=== PATIENT | female | born 1965 | race Caucasian/White ===

== ENCOUNTER 2019-05-19 09:23 | Inpatient (IN) ==
[2019-05-19] MEDS ORDERED: NS 1,000 ML IV ONE ×3 (09:44→11:48)
--- NOTE | 2019-05-19 09:55 | PROVIDER DOCUMENTATION ---
HPI-Fever - General Chief Complaint: SEPSIS ALERT Stated Complaint: FEVER,VOMITING,SORE THROAT,CHILLS Time Seen by Provider: 05/19/19 09:43 Source: patient Allergies/Adverse Reactions: Patient Allergies Allergy/AdvReac Type Severity Reaction Status Date / Time cephalexin [From Keflex] Allergy Severe ANAPHYLAXIS Verified 05/19/19 10:19 codeine [Codeine] Allergy Severe SWELLING Verified 05/19/19 10:19 doxycycline Allergy Severe ANAPHYLAXIS Verified 05/19/19 10:19 levofloxacin [From Levaquin] Allergy Severe HIVES Verified 05/19/19 10:19 Penicillins Allergy Severe ANAPHYLAXIS Verified 05/19/19 10:19 sulfamethoxazole Allergy Severe ANAPHYLAXIS Verified 05/19/19 10:19 [From Bactrim] trimethoprim [From Bactrim] Allergy Severe ANAPHYLAXIS Verified 05/19/19 10:19 Home Medications: Home Medication List Medication Instructions Recorded Confirmed Last Taken Type Esomeprazole [Nexium] 40 mg PO HS 02/13/12 05/20/19 05/16/19 21:00 History Amitriptyline HCl 150 mg PO HS 05/10/19 05/20/19 05/16/19 21:00 History Bisoprolol/Hydrochlorothiazide 1 ea PO HS 05/10/19 05/20/19 05/16/19 21:00 History [Ziac 10-6.25 mg Tablet] Losartan Potassium [Cozaar] 100 mg PO HS 05/10/19 05/20/19 05/16/19 21:00 History Tolterodine Tartrate [Detrol] 1 mg PO HS 05/10/19 05/20/19 05/16/19 21:00 History Metformin [Glucophage] 2,000 mg PO HS 05/17/19 05/20/19 Unknown History Oxycodone I.r. [Oxy Ir] 5 mg PO Q6H PRN PRN #15 cap 05/17/19 05/20/19 Unknown Rx Amlodipine Besylate [Norvasc] 10 mg PO HS 05/20/19 05/20/19 Unknown History Escitalopram Oxalate [Lexapro] 10 mg PO HS 05/20/19 05/20/19 Unknown History Ropinirole [Requip] 2 mg PO DAILY 05/20/19 05/20/19 Unknown History Aztreonam [Azactam] 1 gm .SEE ORDER Q8H #33 vial 05/24/19 Unknown Rx - History of Present Illness-Fever Nature of Presenting Problem: Patient had lithotripsy and was doing fine until last night. She started running fever and had shortness of breath. She has a mild cough which is nonproductive. She is having some flank pain since the lithotripsy. No travel. Fever Severity/Quality: reports: greater than 100.5 F Onset/Duration: reports: last night Timing: reports: still present Severity: reports: moderate Context: reports: none Recent Illness?: reports: none Fever Therapy DRAIN CLEANER: Initiated none Cognitive Baseline: alert, oriented x3 Modifying Factors: improves with: nothing Associated Symptoms: reports: back/neck pain, cough, fever/chills, shortness of breath, other (dysurea) Similar Symptoms Previously?: No Recently seen or treated by another doctor?: Yes - Glascow Coma Score Best Eye Response ([place]): (4) open spontaneously Best Verbal Response (Mona): (5) oriented Best Motor Response ([place]): (6) obeys commands Mona Total: 15 Review of Systems - Adult - REVIEW OF SYSTEMS - ADULT Constitutional: reports: see HPI Eyes: reports: no symptoms reported Ears, Nose, Mouth & Throat: reports: throat pain Cardiovascular: reports: no symptoms reported Respiratory: reports: see HPI Gastrointestinal: reports: no symptoms reported Genitourinary: reports: dysuria Musculoskeletal: reports: see HPI Integumentary: reports: no symptoms reported Neurological: reports: no symptoms reported Psychiatric: reports: no symptoms reported Endocrine: reports: no symptoms reported Hematologic/Lymphatic: reports: no symptoms reported Allergic/Immunologic: reports: no symptoms reported Past History - Adult - PAST MEDICAL HISTORY-ADULT Review of Records: reports: Old Records Reviewed, Nursing Assessment Review Major Childhood Illnesses: reports: denies history Cardiovascular: reports: HTN Respiratory: reports: COPD, other Gastrointestinal: reports: denies history Obstetrical/Gynecological: reports: denies history Genitourinary: reports: kidney stones Musculoskeletal: reports: denies history Neurological: reports: denies history Psychiatric: reports: denies history Endocrine/Immune: reports: Diabetes Other Conditions: reports: denies history Additional History: sleep apnea - PRIOR SURGERIES/PROCEDURES Surgical/Procedure History: reports: cholecystectomy, hysterectomy, other - PRIOR HOSPITALIZATIONS Prior Hospitalizations: reports: none - IMMUNIZATION STATUS Childhood Immunizations: See Nurse Assessment Flu Vaccine: See Nurse Assessment - FAMILY HISTORY Family History: reviewed, not pertinent Physical Exam-General - PHYSICAL EXAM-ADULT Initial Vital Signs Reviewed: Yes - CONSTITUTIONAL General Appearance: mild distress, obese - EYES Eyes: PERRL/EOMI, pink conjunctivae, anisocoria - HEAD, EARS, NOSE, MOUTH & THROAT HENMT: normocephalic/atraumatic, moist mucous membranes, normal ENT inspection, TMs normal, pharynx normal - NECK Neck: non-tender, full range of motion, supple - RESPIRATORY Respiratory: lungs clear, other (tachipnic) - CARDIOVASCULAR Cardiovascular: normal peripheral pulses, no edema, no gallop, no JVD, no murmur - GASTROINTESTINAL (ABDOMEN) Abdominal Exam: normal bowel sounds, non tender, soft - LYMPHATIC Lymphatic: no adenopathy - MUSCULOSKELETAL Back Exam: normal inspection, CVA tenderness (mild tenderness) Extremity: normal range of motion, non-tender, normal gait - SKIN Integumentary: diaphoresis - NEUROLOGIC Neurologic: grossly normal - PSYCHIATRIC Psych/Mental Status: normal mood/affect, normal thought content Progress - PLAN OF CARE/RESULTS Progress/Plan/Lab Results: Orders Category Date Time Status Admit [facility] Routine AdmDCTranf 05/19/19 15:04 Active Activity - Up with Assistance ORDERED Care 05/19/19 15:04 Completed Apply Mechanical Device [QM] ORDERED Care 05/19/19 18:10 Completed Cardiac Monitoring NOW Care 05/19/19 09:35 Completed IV Insertion NOW Care 05/19/19 09:35 Completed Intake and Output-Strict ORDERED Care 05/19/19 18:10 Completed NEWS Score >or=5:Order NEWS Bundle S.O. NOW Care 05/19/19 09:33 Completed Notify Provider of NEWS Score NOW Care 05/19/19 09:35 Completed Nursing- MD Consult Request ROUTINE Care 05/19/19 15:04 Completed Update & Confirm Home Medicati ROUTINE Care 05/19/19 15:04 Completed Vital Signs Order Q 4-HR ASSESS Care 05/19/19 18:10 Completed Z-Document. for Tele Applied ORDERED Care 05/19/19 18:10 Completed Physician/Provider Consults Routine Cons 05/19/19 15:04 Ordered Social Service Consult Routine Cons 05/19/19 18:10 Active CHEST-1 VIEW [RAD] Stat Exams 05/19/19 09:[address] ABDOMEN/PELVIS W/O CONTRAST [CT] Stat Exams 05/19/19 12:41 Completed BLOOD CULTURE [BLDCUL] Stat Lab 05/19/19 11:10 Completed CBC WITH DIFF [HEME] Q24H Lab 05/20/19 06:50 Completed CBC WITH DIFF [HEME] Q24H Lab 05/21/19 07:19 Completed CBC WITH DIFF [HEME] Q24H Lab 05/22/19 06:29 Completed CBC WITH DIFF [HEME] Q24H Lab 05/23/19 06:50 Completed CBC WITH DIFF [HEME] Q24H Lab 05/24/19 07:30 Completed CBC WITH DIFF [HEME] Stat Lab 05/19/19 10:33 Completed CK PROFILE [SP CHEM] Stat Lab 05/19/19 10:33 Completed COMPREHENSIVE METABOLIC PANEL [CHEM] Q24H Lab 05/20/19 06:50 Completed COMPREHENSIVE METABOLIC PANEL [CHEM] Q24H Lab 05/21/19 07:19 Completed COMPREHENSIVE METABOLIC PANEL [CHEM] Q24H Lab 05/22/19 06:29 Completed COMPREHENSIVE METABOLIC PANEL [CHEM] Q24H Lab 05/23/19 06:50 Completed COMPREHENSIVE METABOLIC PANEL [CHEM] Q24H Lab 05/24/19 07:30 Completed COMPREHENSIVE METABOLIC PANEL [CHEM] Stat Lab 05/19/19 10:33 Completed D-DIMER [COAG] Stat Lab 05/19/19 10:33 Completed Flu Swab [INFLUENZA SCREEN A/B] Stat Lab 05/19/19 09:32 Completed GRAM STAIN [BLDCUL] Stat Lab 05/19/19 11:10 Completed GRAM STAIN [BLDCUL] Stat Lab 05/19/19 11:25 Completed LACTATE, PLASMA [CHEM] Lab 05/19/19 10:33 Completed LACTATE, PLASMA [CHEM] Lab 05/19/19 14:12 Completed LACTATE, PLASMA [CHEM] Lab 05/19/19 18:58 Completed MAGNESIUM [CHEM] Q24H Lab 05/20/19 06:50 Completed MAGNESIUM [CHEM] Q24H Lab 05/21/19 07:19 Completed MAGNESIUM [CHEM] Q24H Lab 05/22/19 06:29 Completed MAGNESIUM [CHEM] Q24H Lab 05/23/19 06:50 Completed MAGNESIUM [CHEM] Q24H Lab 05/24/19 07:30 Completed PROTIME WITH INR [COAG] Stat Lab 05/19/19 10:33 Completed PTT [COAG] Stat Lab 05/19/19 10:33 Completed TROPONIN T HIGH SENSITIVITY Stat Lab 05/19/19 10:33 Completed URINALYSIS W/POSS RFLX CULT [URINALYSIS] Stat Lab 05/19/19 12:54 Completed URINE CULTURE [RM] Routine Lab 05/19/19 12:54 Completed URINE MANUAL MICROSCOPIC [URINALYSIS] Stat Lab 05/19/19 12:54 Completed 0.9% Sodium Chloride Inj [Ns] 1,000 ml Med 05/19/19 15:04 Discontinued IV 100 mls/hr 0.9% Sodium Chloride Inj [Ns] 1,000 ml Med 05/19/19 09:44 Discontinued IV 999 mls/hr 0.9% Sodium Chloride Inj [Ns] 1,000 ml Med 05/19/19 10:57 Discontinued IV 999 mls/hr 0.9% Sodium Chloride Inj [Ns] 1,000 ml Med 05/19/19 11:48 Discontinued IV 999 mls/hr Acetaminophen [Tylenol] Med 05/19/19 15:04 Discontinued 650 mg PO Q6H PRN PRN Aztreonam [Azactam] 1 gm Med 05/19/19 14:50 Discontinued 0.9% Sodium Chloride Inj [Ns] 50 ml IV NOW Linezolid 600 mg/D5w [Zyvox 600 mg/D5w] Med 05/19/19 15:00 Discontinued 600 mg in 300 ml IV Q12H Ondansetron [Zofran] Med 05/19/19 12:40 Discontinued 4 mg IV NOW ONE Ondansetron [Zofran] Med 05/19/19 15:04 Discontinued 4 mg IV Q4H PRN PRN O2 Per Protocol Stat Oth 05/19/19 09:35 Completed Telemetry [OM.EQ] Routine Oth 05/19/19 18:10 Active EKG [EKG] Stat Ther 05/19/19 09:44 Draft Transfer/Admit Order [TRANSFER] Routine Transfer 05/19/19 14:54 Completed Result Diagrams: 05/24/19 07:30 05/24/19 07:30 - EKG 1 Time of EKG reading by physician:: 14:29 EKG Read and Signed by:: Jose Cortes EKG Interpretation (*Must complete 3 of following elements*): Abnormal Rate: 120 Rhythm: sinus [place]: normal QRS: normal MI Interval: normal ST Wave: normal Departure - Departure Date of Disposition Decision: 05/19/19 Time of Disposition Decision: 18:21 DIAGNOSIS: Kidney stone Sepsis Qualifiers: Sepsis type: sepsis due to unspecified organism Sepsis acute organ dysfunction status: unspecified Qualified Code(s): A41.9 - Sepsis, unspecified organism Disposition: ADMITTED INPATIENT 09 Certified Medical Emergency: Emergent Condition: Serious - Critical Care Note This patient required my direct & personal management of CC.: No Attestation - Physician/ VANGIE Attestation Patient care was provided by Advanced Practice Provider:: No The physician spent face to face time with patient:: Yes Advanced Practice Provider documentation review:: Supervising physician onsite and consulted in the evaluation and care of this patient. The physician did have a face to face encounter with the patient.
--- NOTE | 2019-05-19 10:28 | Diag Imaging Result Doc PS360 ---
EXAM: CHEST-1 VIEW HISTORY: SOB TECHNIQUE: Single view COMPARISON: 02/22/2018 FINDINGS: The lungs are well expanded. The heart is not enlarged. The vessels are not distended. There are no infiltrates. No effusion identified. IMPRESSION: Negative exam. Electronically signed by Bang Verma 05/19/2019 10:26 AM
[2019-05-19 11:12] LABS: INR 1.13; PROTIME 14.6 Seconds (11.0-16.0); PTT 34.1 Seconds (22.3-41.8)
[2019-05-19 11:23] LABS: BASO# 0.01 X1000 (0.0-0.2); BASO% 0.1 % (0.0-0.8); EOS# 0.04 X1000 (0.0-0.7); EOS% 0.3 % (0.0-10.0); HEMATOCRIT 39.8 % (37.0-47.0); HEMOGLOBIN 12.8 g/dL (12.0-16.0); IMM GRAN# 0.04 X1000 (0.0-0.04); IMM GRAN% 0.3 % (0.0-0.5); LYMPH# 0.38 X1000 (1.2-3.4); LYMPH% 2.7 % (20.5-51.1); MCHC 32.2 g/dL (33-37); MONO# 0.49 X1000 (0.11-0.59); MONO% 3.5 % (1.7-9.3); MPV 9.2 FL (7.4-10.4); NEUT# 12.96 X1000 (1.4-6.5); NEUT% 93.1 % (42.2-75.2); PLT 274 X1000 (130-400); RBC 4.42 XMIL (4.2-5.4); RDW 13.8 % (11.5-14.5); WBC 13.92 X1000 (4.8-10.8)
[2019-05-19 11:27] LABS: ALB/GLOB RATIO 1.4; ALBUMIN 3.7 g/dL (3.5-5.0); CALCIUM 9.1 mg/dL (8.8-10.2); CREATININE 1.7 mg/dL (0.5-0.9); POTASSIUM 3.9 mmol/L (3.5-5.1); TOTAL BILIRUBIN 0.72 mg/dL (0.20-1.00); TOTAL PROTEIN 6.3 g/dL (6.3-8.3)
[2019-05-19 11:42] LABS: BANDS 8 % (0-1); MONO 4 % (1-9); SEGS 88 % (42-75)
[2019-05-19] MEDS ORDERED: ZOFRAN IV ONE (12:40)
[2019-05-19 13:27] LABS: URINE SOURCE CLEAN CATCH
[2019-05-19 13:30] LABS: BILIRUBIN URINE NEGATIVE (NEGATIVE); BLOOD URINE MODERATE (NEGATIVE); COLOR ORANGE; GLUCOSE URINE NEGATIVE (NEGATIVE); KETONE URINE TRACE mg/dL (NEGATIVE); LEUKOCYTES URINE LARGE (NEGATIVE); NITRITE URINE NEGATIVE (NEGATIVE); PH URINE 5.5; PROTEIN URINE 100 mg/dL (NEGATIVE); SP GRAVITY URINE 1.028; TURBIDITY URINE TURBID (CLEAR); UROBILINOGEN URINE NORMAL (NORMAL)
[2019-05-19 13:37] LABS: UR EPITHELIAL CELLS <10 /HPF (<10); URINE BACTERIA 2+ /HPF; URINE RBC TNTC /HPF (<10); URINE WBC TNTC /HPF (<10)
--- NOTE | 2019-05-19 13:39 | Diag Imaging Result Doc PS360 ---
EXAM: CT ABDOMEN/PELVIS W/O CONTRAST HISTORY: post op fever TECHNIQUE: CT abdomen and pelvis without oral or intravenous contrast COMPARISON: 04/13/2019 FINDINGS: The gallbladder has been removed. There is fatty infiltration of the liver. Normal spleen, pancreas, and adrenal glands. No left renal stone or left-sided hydronephrosis. There is now a 7 mm stone in the distal right ureter at the ureterovesical junction with mild hydronephrosis and perinephric inflammation. There are small nonobstructing right renal stones. Normal aorta. No bowel obstruction. Normal appendix. No abscess. No ascites. The uterus has been removed. There is a 5.5 cm left ovarian cysts. The urinary bladder is not distended. IMPRESSION: 1.There is now a large stone at the right ureterovesical junction with hydronephrosis and perinephric inflammation 2.Small nonobstructing right renal stones 3.Cholecystectomy 4.There is fatty infiltration of the liver 5.Left ovarian cyst 6.Hysterectomy This exam was performed using automated exposure control, adjustment of mA or kV according to patient size, and/or use of iterative reconstruction technique. Electronically signed by Bang Verma 05/19/2019 1:37 PM
[2019-05-19 14:03] LABS: URINE CASTS NONE SEEN; URINE YEAST NONE SEEN
[2019-05-19] MEDS ORDERED: AZACTAM 1 GM in NS 50 ML IV ONE (14:50)
[2019-05-19] MEDS ORDERED: DIPRIVAN 1% ONE (16:12)
[2019-05-19] MEDS ORDERED: VERSED ONE (16:12)
--- NOTE | 2019-05-19 16:27 | HISTORY AND PHYSICAL ---
CHIEF COMPLAINT: Right flank pain with concern for urinary tract infection. HISTORY PRESENT ILLNESS: Mrs. Rodriguez is a 54-year-old with type 2 diabetes, hypertension, hyperlipidemia, history of kidney stones, sarcoidosis and obstructive sleep apnea, who underwent right extracorporeal shockwave lithotripsy on 05/17/2019. The patient states she did relatively well postoperatively, however, she began having nausea and pain yesterday night and presented to the emergency room this morning. The patient was tachycardic to 145 with temperature 102.1 degrees at 0930. Labs were obtained which showed a white blood cell count of 13, creatinine 1.7 from baseline of 0.7. CT scan was performed which showed what appears to be a 7 mm stone in the distal right ureter almost in the ureterovesical junction with hydronephrosis and some stranding of the kidney and ureter. The patient continues to have pain. Heart rate this afternoon was 110 with blood pressure of 94/57, which is down from 194/141 on presentation. She is complaining of shortness of breath and occasional lower extremity pain on the right side. She states she had a low-grade temperature at home but the one here in the hospital is significantly elevated above this. She has a cough that is nonproductive. Has chills, nausea, vomiting, shortness of breath. ALLERGIES: 1. Keflex-anaphylaxis. 2. Codeine-swelling. 3. Dicyclomine-anaphylaxis. 4. Levaquin-hives . 5. Penicillin-anaphylaxis. 6. Sulfamethoxazole-anaphylaxis. 7. Trimethoprim-anaphylaxis. HOME MEDICATIONS: 1. Nexium 40 mg p.o. 2. Amitriptyline 150 mg p.o. daily. 3. Bisoprolol/hydrochlorothiazide 10/6.25. 4. Cozaar 100 mg. 5. Tolterodine 1 mg p.o. 6. Metformin 200 mg p.o. 7. Oxycodone 5 mg q.6 hours as needed. 8. Flomax 0.4 mg daily. PAST SURGICAL HISTORY: 1. Cholecystectomy. 2. Hysterectomy. 3. Tubal ligation . 4. Extracorporeal shock lithotripsy. 5. Lung Biopsy 6. Left Hip Surgery PAST MEDICAL HISTORY: 1. Type II Diabetes 2. Sarcoidosis 3. Hypertension 4. Asthma 5. Restless Leg Syndrome 6. GERD FAMILY HISTORY: Denies family history malignancy. SOCIAL HISTORY: Denies tobacco, alcohol, illicit drug use. REVIEW OF SYSTEMS: 12 organ systems performed with all pertinent positives and negatives in HPI. PHYSICAL EXAM: Vital signs: Temperature at 9:30 was 102.1, heart rate 145, blood pressure 194/141, oxygen saturation 95% on room air. General: Mild to moderate distress, alert and oriented x3. HEENT: Normocephalic, atraumatic. Pupils equal, round, reactive to light. Neck: Trachea midline. Respiratory: Increased work of breathing, nasal cannula on 2 L nasal cannula, slight wheezing. Abdomen: Soft, nondistended, slight tenderness to palpation the right flank, No suprapubic tenderness as well as CVA tenderness on the right side. Skin: No skin lesions or rashes. Musculoskeletal: Moves all extremities. No palpable masses in lower extremity. No tenderness to palpation of the right lower extremity. Neurologic: Gross motor and sensory intact. LABS: White blood cell count 13.9, hemoglobin 12.8, hematocrit 39.8, platelets 274,000. Sodium 136, potassium 3.9, chloride 96, bicarb 23, BUN 21, creatinine 1.7, glucose 137, lactate 1.3. Urinalysis shows moderate blood, large amount of leukocytes, 2+ bacteria, less than 10 epithelial cells. IMAGING: CT abdomen pelvis reviewed which showed what appears to be approximate 7 mm stone in the distal right ureter near the ureterovesical junction associated hydronephrosis, small debris seen within the right kidney with resolution of intrarenal stone, stranding is seen around the ureter as well as the kidney itself appears to be normal postoperatively from extracorporeal shock lithotripsy. ASSESSMENT AND PLAN: Ms Rodriguez 54-year-old hypertension, type 2 diabetes, history of chronic obstructive pulmonary disease, obstructive sleep apnea and recurrent nephrolithiasis presents in consultation regarding obstructing right distal ureteral stone. The patient's blood pressures have been lower. She has been febrile and tachycardiac. Concern arises for urosepsis. In talking with her I recommended cystoscopy with right ureteroscopy and removal of stone with placement of stent. I think I will have to remove the stone to place a stent due to the distal nature of it. Will have to break the stone, remove as many pieces possible in order to place a stent. She has some increased work of breathing. Will continue with optimization from respiratory status could be just related to urosepsis versus underlying pulmonary pathology as she does have chronic obstructive pulmonary disease, asthma, and sarcoidosis. D-dimer is elevated but would be appropriate following her surgery. Will continue to monitor her from respiratory status. She is being admitted to the hospitalist. Will plan to taken emergent to the operating room. Discussed risks, benefits, alternatives of procedure to her and her . Discussed risks of bleeding, worsening infection and need for hospitalization, prolonged ICU admission, as well as heart attack, strokes, pulmonary embolism and . After thorough discussion she elected to proceed. We will plan to do this emergently this afternoon. Will start antibiotics, as she has not received any antibiotics while in the ED. Has large amount of allergies but can take Rocephin, will start Azethreonam. cc: Tommie Palencia MD MTDD
--- NOTE | 2019-05-19 16:48 | EKG Report ---
Test Performed on : 05/19/2019 2:18:17 PM Test Reason : shortness of breath Blood Pressure : / mmHG Vent. Rate : 120 BPM Atrial Rate : 120 BPM P-R Int : 160 ms QRS Dur : 094 ms QT Int : 326 ms P-R-T Axes : 038 022 024 degrees QTc Int : 460 ms Sinus tachycardia. with premature atrial complexes. Otherwise normal ECG When compared with ECG of 10-MAY-2019 13:25, (Unconfirmed) premature atrial complexes. are now present Unconfirmed Result
[2019-05-19] MEDS: ZYVOX 600 MG/D5W 600 MG/300 ML IVPB IV SCH (17:00)
[2019-05-19] MEDS ORDERED: DECADRON ONE (17:01)
[2019-05-19] MEDS ORDERED: ZOFRAN ONE (17:01)
--- NOTE | 2019-05-19 17:29 | HISTORY AND PHYSICAL ---
PRIMARY CARE PROVIDER: YONAS King UROLOGIST: Tommie Palencia MD HISTORY OF PRESENT ILLNESS: Ms. Kayla Rodriguez is a 54-year-old female with a medical history of diabetes mellitus type 2, sarcoidosis, asthma, hypertension and frequent kidney stones, who states that she gets frequent kidney stones and has had multiple lithotripsies, and even one stone extraction. This past , just a couple of days ago, she had a lithotripsy performed by Dr. Palencia. Since that day, she has developed fever up to 102 degrees with flank pain on the right. Imaging shows a large stone in the right UVJ with hydronephrosis, and she is going to go for urgent intervention with Dr. Palencia. PAST MEDICAL HISTORY: 1. Diabetes mellitus type 2. 2. Sarcoidosis. 3. Asthma. 4. Hypertension. 5. Kidney stones. 6. Restless legs syndrome. 7. GERD. 8. Left shoulder large cyst, being surgically evaluated by Dr. Karthikeyan Marley. PAST SURGICAL HISTORY: 1. Cholecystectomy. 2. Multiple lithotripsies. 3. Kidney stone extraction. 4. section x1. 5. Left lung biopsy in 2007 which diagnosed sarcoidosis. 6. Left hip repair secondary to fracture. 7. Hysterectomy. SOCIAL HISTORY: Denies tobacco, alcohol or illicit drug use. She is and has 3 children. She does not work. FAMILY HISTORY: Mother had lung cancer. Father had an abdominal aortic aneurysm. ALLERGIES: Keflex, codeine, doxycycline, levofloxacin, penicillins, sulfa/trimethoprim, Bactrim. MEDICATIONS: Home medications not yet reconciled. REVIEW OF SYSTEMS: Fourteen-point review of systems are complete and all are negative except for those mentioned above in HPI. PHYSICAL EXAMINATION: VITAL SIGNS: Temperature 102.1 degrees, heart rate 145, respiratory rate 24, blood pressure 194/141, but there was a repeat that is not on the monitor. Heart rate was 116. Blood pressure is 106/68 with a mean of 80, respiratory rate 24, oxygen saturation 97%. GENERAL: Ms. Kayla Rodriguez is a 54-year-old female. She is in no acute distress, just slightly short of breath but able to answer questions appropriately. HEENT: Atraumatic, normocephalic. Pupils equal, round and reactive to light. Extraocular movements intact. Mucous membranes are moist. NECK: Trachea midline. CARDIOVASCULAR: S1, S2. Tachycardic rate and rhythm. No rubs, gallops or murmurs. No lower extremity edema. Dorsalis and radial pulses +2. Negative JVD or carotid bruits. PULMONARY: Clear to auscultation, bilateral breath sounds. No accessory muscle use or work of breathing noted. She is a little tachypneic, tolerating room air. GASTROINTESTINAL: Soft. Right flank tenderness. Hypoactive bowel sounds. EXTREMITIES: Moves all extremities equally. Full range of motion. NEUROLOGIC: Alert and oriented x3. Follows commands. Sensory is intact. SKIN: Warm, dry, intact. LABORATORY DATA: White blood cells 13,000, hemoglobin 12, hematocrit 39, platelet count 274,000. INR is 1.13, PTT is 34.1. D-dimer is 1.77. Sodium 136, potassium 3.9, BUN 21, creatinine 1.7, glucose 137, calcium 9.1, bilirubin 0.72, AST 19, ALT 15. CK 58, troponin 10. Albumin 3.7. Lactate originally was 2.5, down to 1.3. Urinalysis: Protein 100, trace ketones, moderate blood, large leukocytes, kjh-yycaipct-ds-count white blood cells, adr-pwziynzd-rw-count red blood cells, 2+ bacteria. DIAGNOSTIC DATA: Abdominopelvic CT with a large stone at the right ureterovesical junction with hydronephrosis and perinephric inflammation; small nonobstructing right renal stones; cholecystectomy; fatty infiltration of the liver; left ovarian cyst and hysterectomy. Chest x-ray: Negative exam. ASSESSMENT AND PLAN: 1. Large right ureterovesical junction stone with hydronephrosis and perinephric inflammation. Dr. Palencia is aware and is going to take her for urgent extraction. She will be started on Azactam antibiotic therapy. 2. Urinary tract infection with hematuria. Again, she is going to be on Azactam. 3. Sepsis without shock. She received sepsis protocol 30 mL/kg. Given the multiple antibiotic anaphylaxis reactions, Azactam and also Zyvox have been ordered for broad-spectrum coverage. She has already since had a normal lactate. She is still tachycardic, but she is in pain. 4. Sarcoidosis, currently stable. 5. Asthma, still stable but if we need to we can add nebulizers. 6. Diabetes mellitus type 2. We can do pattern blood glucoses. When she gets out, she can have a diabetic diet. 7. Hypertension. Still waiting for home medications to be reconciled. 8. Gastroesophageal reflux disease. 9. Deep venous thrombosis prophylaxis. Sequential compression devices for now. Dictated by YONAS Linares for Randal Kinney MD cc: YONAS Linares MD
--- NOTE | 2019-05-19 17:37 | PROGRESS NOTE ---
DATE: 05/19/2019 SUBJECTIVE: The patient came in. She has a kidney stone after having extracorporeal shockwave lithotripsy yes and a couple days ago and now she has hydronephrosis and likely a ureteral infection, possible pyelo. She has got vanessa nephritis. She has significant allergies to multiple antibiotics, pretty much has all cephalosporins, penicillins, Bactrim, Levaquin, doxycycline. Somehow it is all anaphylaxis which none of those compounds are related from moiety standpoint and they all cause anaphylaxis. In any case we will try Aztreonam until we can get cultures back. Dr. Palencia has been consulted. She will be taken for cystoscopy and stone removal. This was a kswf-[id number]-rupt encounter note with Yina Mittal. cc: Randal Kinney MD
[2019-05-19] MEDS: NS 1,000 ML IV SCH (18:41)
[2019-05-19 19:43] LABS: CALCIUM 7.9 mg/dL (8.8-10.2); CREATININE 1.5 mg/dL (0.5-0.9); MAGNESIUM 1.7 mg/dL (1.5-2.7); PHOSPHORUS 1.3 mg/dL (2.7-4.5); POTASSIUM 4.3 mmol/L (3.5-5.1)
[2019-05-19] MEDS: HUMULIN R SUBQ SCH (20:31)
[2019-05-19] MEDS: LOPRESSOR PO SCH (20:31)
[2019-05-19] MEDS: TYLENOL PO PRN (21:37)
[2019-05-20] MEDS: AZACTAM 1 GM in NS 50 ML IV SCH ×2 (01:24→08:46)
[2019-05-20] MEDS: LOPRESSOR PO SCH ×4 (01:37→22:07)
[2019-05-20] MEDS: NS 1,000 ML IV SCH ×2 (01:37→10:59)
[2019-05-20] MEDS: ZYVOX 600 MG/D5W 600 MG/300 ML IVPB IV SCH (03:31)
[2019-05-20] MEDS: TYLENOL PO PRN (06:04)
[2019-05-20] MEDS: HUMULIN R SUBQ SCH ×4 (06:12→22:53)
--- NOTE | 2019-05-20 07:49 | OPERATIVE NOTE ---
PROCEDURE DATE: 05/19/2019 PREOPERATIVE DIAGNOSES: 1. Right ureteral stone. 2. Right pyelonephritis with concern for urosepsis. POSTOPERATIVE DIAGNOSES: 1. Right ureteral stone. 2. Right pyelonephritis with concern for urosepsis. PROCEDURE PERFORMED: 1. Cystoscopy. 2. Right ureteroscopy with stone basket extraction. 3. Right ureteral stent placement. SURGEON: Tommie Palencia MD. [employer] PLAYER: None. COMPLICATIONS: None. BLOOD LOSS: 2 mL. DRAINS: 1. A 6 x 24 cm right ureteral stent. 2. A 16-Georgian Moore catheter. SPECIMENS REMOVED: Ureteral stones and bladder stones. INDICATIONS FOR PROCEDURE: Ms. Rodriguez is a 54-year-old who presented to [facility] and had a stone within her kidney, complained of pain. She was treated with antibiotics and underwent right extracorporeal shockwave lithotripsy on 05/17/2019. She did relatively well after procedure. However, on postop day 1, she began having fevers and presented to the emergency room on 05/19/2019. The patient was having fevers, elevated white blood cell count, and hypotension with significant tachycardia. She was evaluated and taken to the operating room emergently due to obstructing uropathy after CT scan showed what appeared to be a possible 7 mm stone in the distal right ureter with significant stranding around the kidney itself. Risks, benefits, and alternatives to the procedure were discussed with the patient and her , and they elected to proceed. DESCRIPTION OF PROCEDURE: After informed consent was obtained, the patient was brought to the operating room and placed on the table in the supine position. The patient received preoperative antibiotics in the emergency room and underwent LMA placement. She was positioned to a dorsal lithotomy position, was prepped and draped in the usual sterile fashion. A preoperative time-out was then performed with all parties in agreement including anesthesia, surgical, and nursing staff. At this point, a cystourethroscope was inserted through the urethra, showing normal urethra. No evidence of stricture disease. Once inside the bladder, the entirety of the bladder was inspected with no diverticulum, cellules, or trabeculations. A large amount of stone debris was seen in the bladder and this was drained out. The patient's bladder was cycled multiple times until all the stones were removed. The right ureteral orifice showed some stones behind this. A ZIPwire was then passed through the scope and up into the kidney itself. The patient's bladder was decompressed. The ureteroscope was advanced through the urethra and into the bladder. Using low-pressure, went up into the ureter itself and extracted all the stones with Jayden basket that were visualized and passed the ureteroscope all the way up into the proximal ureter with no residual stone seen. Several large stones were seen but no significant stone burden was visualized within the ureter. These appeared quite small and easily passable. I think patient's CT scan showed multiple stone fragments of a well broken-up stone from her extracorporeal shockwave lithotripsy. There was some sediment within the bladder itself as well as coming from the ureter. The decision was made to abort the procedure at this time and place a ureteral stent as all the significant stone debris had been extracted. The ZIPwire was left in place and no significant ureteral trauma was seen. Ureter was widely patent until the ureteral orifice which had some edema present, likely from obstruction from previously passed stones. The ZIPwire was left in place and then back-loaded through a cystourethroscope. A 6 x 24 cm stent was advanced over the wire with good curl in the kidney, endoscopically visualized in the bladder. The patient's bladder was cycled multiple times and all stone debris was removed, left full, and a 16-Georgian Moore catheter inserted through the urethra, into the bladder, inflated with 10 mL of sterile water, and placed to gravity drainage. The patient remained tachycardic throughout the procedure and was febrile to 102. Postoperatively, the patient was transitioned to the ICU for overnight observation. If she does well, could consider transition. We will discuss this with her primary team. cc: Tommie Palencia MD [facility]
--- NOTE | 2019-05-20 07:55 | PROGRESS NOTE ---
DATE: 05/20/2019 SUBJECTIVE: The patient was taken to the operating room yesterday for cystoscopy, right ureteroscopy, stone extraction, and right ureteral stent placement. The patient has done relatively well. She is having some pain this morning. Had some nausea postoperatively yesterday, which seems to have resolved. Was able to tolerate p.o. intake last night. She denies any fevers or chills. Feels very fatigued and tired after her procedure yesterday. OBJECTIVE: Vital Signs: Temperature 97.3 degrees, heart rate 93, blood pressure 117/79, oxygen saturation 100% on 2 L nasal cannula. General: No acute distress. Resting comfortably in bed. Alert and oriented x3. Respiratory: Good respiratory effort without audible wheezing or rales. Abdomen: Soft, nontender, nondistended. : No suprapubic tenderness. No CVA tenderness. Urethral catheter in place, draining clear yellow urine. Musculoskeletal: Moving all extremities. LABORATORY DATA: Blood work has not returned this morning. The patient's blood cultures are positive for gram-negative rods. ASSESSMENT AND PLAN: Mrs. Rodriguez is a 54-year-old with type 2 diabetes, hypertension, hyperlipidemia, history of nephrolithiasis, sarcoid, obstructive sleep apnea, and asthma, who presented to the emergency room yesterday complaining of fatigue, tiredness, fevers, with worsening pain. CT scan was performed, which showed a possible 7 mm stone in the distal ureter. Went to the operating room yesterday due to concern for urosepsis, to place a stent. On inspection, the patient seemed to have passed all her stones as there was no ureteral stones seen within the ureter itself, other than some small debris. I think the patient likely had calcified debris that looked like a larger stone than it actually was. Clinically, the patient is improving. Continues to have some pain. Will start her on pain medication today. The patient's blood culture is growing gram-negative rods. Urine culture has not returned. Blood work from this morning has not returned as well. Will keep indwelling catheter at this time. Will advance her diet as tolerates. Encouraged her to be ambulatory today. Would follow up blood and urine cultures, and continue on culture-specific antibiotics. Will continue to monitor from a urologic standpoint. Please call with questions or concerns. cc: Tommie Palencia MD [facility]
[2019-05-20 07:58] LABS: ALB/GLOB RATIO 0.8; ALBUMIN 2.8 g/dL (3.5-5.0); CALCIUM 7.7 mg/dL (8.8-10.2); POTASSIUM 4.3 mmol/L (3.5-5.1); TOTAL BILIRUBIN 0.25 mg/dL (0.20-1.00); TOTAL PROTEIN 6.2 g/dL (6.3-8.3)
[2019-05-20 08:16] LABS: HEMATOCRIT 36.2 % (37.0-47.0); HEMOGLOBIN 11.2 g/dL (12.0-16.0); IMM GRAN# 0.07 X1000 (0.0-0.04); IMM GRAN% 0.4 % (0.0-0.5); LYMPH# 0.42 X1000 (1.2-3.4); LYMPH% 2.5 % (20.5-51.1); MCH 28.9 PG (27-31); MCHC 30.9 g/dL (33-37); MCV 93.3 FL (81-99); MONO# 0.38 X1000 (0.11-0.59); MONO% 2.3 % (1.7-9.3); MPV 9.4 FL (7.4-10.4); NEUT# 15.63 X1000 (1.4-6.5); NEUT% 94.8 % (42.2-75.2); PLT 225 X1000 (130-400); RBC 3.88 XMIL (4.2-5.4); RDW 13.8 % (11.5-14.5)
[2019-05-20] MEDS: DITROPAN PO SCH ×2 (08:46→20:37)
[2019-05-20] MEDS: NORCO-5 PO PRN ×3 (08:46→22:07)
[2019-05-20 09:13] LABS: BANDS 10 % (0-1); LYMPHS 6 % (21-51); SEGS 84 % (42-75)
--- NOTE | 2019-05-20 14:24 | SEPSIS: TISSUE PERFUSION ASSMT ---
Sepsis: Tissue Perfusion Assmt - Physical Exam Assessment Date: 05/19/19 Time Assessment Initialized: 16:00 Vital Signs: Last Vital Signs Temp 98.7 F 05/20/19 12:00 Pulse 98 H 05/20/19 12:00 Resp 16 05/20/19 12:00 BP 119/84 05/20/19 12:00 Pulse Ox 100 05/20/19 12:00 Height 5 ft 1 in Weight 221 lb Lung Sounds: lungs clear Heart Sounds: Regular Capillary Refill Time: Less Than 2 Seconds Peripheral Pulse Evaluation: radial (R): 2+, radial (L): 2+, dorsalis-pedis (R): 2+, dorsalis-pedis (L): 2+ Skin Exam: pink - Alternative Fluid Bolus Bolus Option: Alternative Fluid Resuscitation Bolus for morbidly obese patients with a BMI >30, Refer to [facility] [place] Body Weight Chart for Reference. Is patient's BMI >30?: Yes
--- NOTE | 2019-05-20 14:48 | PROGRESS NOTE ---
DATE: 05/20/2019 SUBJECTIVE: The patient has no major complaints. She feels much better today. OBJECTIVE: Vital Signs: Blood pressure is 119/84, heart rate of 98, respiratory rate 16, temperature 98.7 degrees, saturating 100% on 2 L. Cardiovascular: Regular rate and rhythm. Pulmonary: Bilateral breath sounds. Clear to auscultation. GI: Soft, nontender, nondistended. Bowel sounds positive. LABORATORY DATA: White count 16, hemoglobin and hematocrit 11 and 36, platelets 225,000. Creatinine is at 1, down from 1.7. Sodium is up. Micro is growing out gram-negative rods from her urine. She also had gram-negative ceasar bacteremia 2 out of 2. PROBLEM LIST: 1. Large ureteropelvic junction stone, although it ended up being 7 mm with pyelonephritis, sepsis, and bacteremia. She seems to be doing better. Blood pressure is stabilized. Will continue Azactam. She is allergic to almost every other antibiotic out there. I do not know what we are going to end up. We may end up having to do intravenous antibiotics. 1) She is bacteremic, although she clearly has a source. 2) There may not be any oral antibiotic options because of her allergies, but her sepsis has resolved. 2. Sarcoidosis. She is on her regular medications. They still have not been updated. It does not look like she is on steroids long-term, but I think she is stable for the floor. 3. Disposition. Pending her clinical status. I was thinking we could get her home, but I did not see that her blood cultures had been positive. I guess that was this morning. cc: Randal Kinney MD
[2019-05-20] MEDS: PYRIDIUM PO PRN (22:53)
[2019-05-21] MEDS: NS 1,000 ML IV SCH ×3 (00:21→18:19)
[2019-05-21] MEDS: AZACTAM 1 GM in NS 50 ML IV SCH ×4 (00:21→23:15)
[2019-05-21] MEDS: LOPRESSOR PO SCH ×5 (02:47→23:49)
[2019-05-21] MEDS: HUMULIN R SUBQ SCH ×4 (06:21→20:16)
[2019-05-21] MEDS: PYRIDIUM PO PRN (06:40)
--- NOTE | 2019-05-21 07:37 | Diag Imaging Result Doc PS360 ---
EXAM: FLUROSCOPY CYSTO 05/19/2019 HISTORY: RT SBE / STENT PLACEMENT TECHNIQUE: Nine images, COMMENT: A right ureteral stent was placed by Dr. Palencia. IMPRESSION: Right ureteral stent placement. Electronically signed by Nelson Lugo 05/21/2019 7:35 AM
--- NOTE | 2019-05-21 07:45 | PROGRESS NOTE ---
DATE: 05/21/2019 SUBJECTIVE: Postoperative day 2 from cystoscopy, right ureteroscopy, stone extraction, and right renal stent placement. Overall, patient seems to be doing better. She has been afebrile with T- max of 99.8 degrees yesterday. She has transitioned to the floor from the ICU yesterday. She did have some pain within her bladder which she describes as possible bladder spasms with indwelling catheter. Her catheter was removed. The patient has been able to spontaneously void. The patient continues to complain of pain in her pelvis, which seems to have improved after recent void as well as pain within her right leg. She is getting a lower extremity ultrasound this morning to rule out concern for deep vein thrombosis. She states that she has been breathing without issue. Her oxygen sats have been slightly low at 93%. OBJECTIVE: Temperature 98.5 degrees, heart rate 102, blood pressure 112/66. Oxygen saturation 93% on room air. General: No acute distress. Resting comfortably in bed. Alert and oriented x3. Respiratory: Good respiratory effort with slight decreased breath sounds at the bases. Cardiovascular: Tachycardia with regular rhythm. Abdomen: Soft, nontender, and nondistended. : No suprapubic tenderness. No CVA tenderness. LABORATORY: The patient's morning labs have not returned yet. White blood cell count yesterday 16.5, hemoglobin 11.2, and hematocrit was 36.2. Creatinine had decreased down to 1.0 from 1.7 on admission. The patient's urine and blood cultures are both growing gram- negative rods which have not finalized yet. ASSESSMENT AND PLAN: Mrs. Rodriguez is a 54-year-old who presents postoperatively after extracorporeal lithotripsy of right-sided kidney stone. She developed fevers and shaking, and presented to the emergency room on Tuesday. She was evaluated with a CT scan which showed what appeared to be a large stone within the distal ureter. She was taken emergently to the operating room due to concern for urosepsis, and had mostly debris within the ureter. This was irrigated out, and several smaller stones were removed with a basket. She had placement of right ureteral stent and clinically is improving. She has been afebrile. Heart rate has improved. She is having some right lower extremity pain. We will obtain a lower extremity ultrasound to assess for deep vein thrombosis. Her creatinine is downtrending at 1 from 1.7 on admission. We will continue to monitor with daily labs. Both her urine and blood cultures both growing gram- negative rods. We will continue to monitor and treat with culture specific antibiotics. The patient has multiple antibiotic allergies, and ultimately will likely need home antibiotics due to inability to tolerate Levaquin p.o. We will coordinate with hospitalist regarding this. We will continue on IV antibiotics until can tailor to urine and blood cultures. cc: Tommie Palencia MD [facility]
[2019-05-21 08:05] LABS: BASO# 0.01 X1000 (0.0-0.2); BASO% 0.1 % (0.0-0.8); EOS% 0.9 % (0.0-10.0); HEMATOCRIT 37.8 % (37.0-47.0); HEMOGLOBIN 11.8 g/dL (12.0-16.0); IMM GRAN# 0.03 X1000 (0.0-0.04); IMM GRAN% 0.3 % (0.0-0.5); LYMPH# 0.68 X1000 (1.2-3.4); LYMPH% 6.1 % (20.5-51.1); MCH 29.4 PG (27-31); MCHC 31.2 g/dL (33-37); MCV 94.3 FL (81-99); MONO# 0.71 X1000 (0.11-0.59); MONO% 6.3 % (1.7-9.3); MPV 9.7 FL (7.4-10.4); NEUT# 9.69 X1000 (1.4-6.5); NEUT% 86.3 % (42.2-75.2); PLT 248 X1000 (130-400); RBC 4.01 XMIL (4.2-5.4); RDW 14.1 % (11.5-14.5); WBC 11.22 X1000 (4.8-10.8)
[2019-05-21 08:43] LABS: ALB/GLOB RATIO 0.6; ALBUMIN 2.6 g/dL (3.5-5.0); CALCIUM 8.5 mg/dL (8.8-10.2); MAGNESIUM 2.1 mg/dL (1.5-2.7); POTASSIUM 4.3 mmol/L (3.5-5.1); TOTAL BILIRUBIN 0.22 mg/dL (0.20-1.00); TOTAL PROTEIN 6.7 g/dL (6.3-8.3)
[2019-05-21 08:59] LABS: BANDS 6 % (0-1); LYMPHS 6 % (21-51); MONO 2 % (1-9); SEGS 86 % (42-75)
[2019-05-21] MEDS: DITROPAN PO SCH ×3 (09:00→20:17)
[2019-05-21] MEDS: ZOFRAN IV PRN (09:23)
[2019-05-21] MEDS ORDERED: OXY IR PO PRN (10:53)
[2019-05-21] MEDS: NORCO-5 PO PRN (14:02)
--- NOTE | 2019-05-21 19:03 | PROGRESS NOTE ---
DATE: 05/21/2019 SUBJECTIVE: Patient has no major complaints. OBJECTIVE: Vital Signs: Blood pressure is 149/94, heart rate of 115, respiratory rate of 16, temperature degrees 99.2. Saturating 91% percent on room air. Cardiovascular: Regular rate and rhythm. Pulmonary: Bilateral breath sounds clear to auscultation. Gastrointestinal: Abdomen soft, nontender, nondistended. LABORATORY DATA: White count 11, hemoglobin and hematocrit 11 and 37 platelets. 248,000 basic creatinine 1. PROBLEM LIST: 1. Large ureteropelvic junction stone with pyelonephritis, sepsis and Escherichia coli bacteremia. Continue Azactam. We discussed about PICC line with IV antibiotics. There is not really any oral options. 2. Gram-negative ceasar bacteremia is an Escherichia coli bacteremia presumably. I still do not have that back, so she will likely need IV antibiotics for a couple weeks in any case. Azactam seems to be effective because she is afebrile, so we will continue to see how she goes. 3. Hypertension appears to be stable. DISPOSITION: Pending her clinical status. cc: Randal Kinney MD
[2019-05-21] MEDS: ELAVIL PO SCH ×2 (19:50→20:17)
[2019-05-21] MEDS: NORVASC PO SCH ×2 (19:50→20:16)
[2019-05-21] MEDS: ZIAC 10/6.25 MG PO SCH ×2 (19:51→20:15)
[2019-05-21] MEDS: COZAAR PO SCH ×2 (19:51→20:15)
[2019-05-21] MEDS: DETROL PO SCH ×2 (19:51→20:17)
[2019-05-21] MEDS: NEXIUM PO SCH ×2 (19:51→20:16)
[2019-05-21] MEDS: LEXAPRO PO SCH ×2 (19:52→20:16)
--- NOTE | 2019-05-21 20:49 | ECHO REPORT ---
ORDER DATE: 05/20/2019 MEASUREMENTS: Septal thickness 1.1, left ventricular internal diameter end-diastole is 4.1, posterior wall thickness 1.1, left ventricular internal diameter end-systole 2.8, aortic root 2.1, left atrium 3. SUMMARY: 1. Technically difficult study. Intravenous echo contrast agent Optison was utilized to enhance endocardial definition. 2. Aortic valve is trileaflet and opens normally on 2-dimensional images. The peak gradient across the aortic valve is less than 10 mmHg. Mitral, tricuspid, and pulmonic valves are without evidence of structural abnormality. There is trace mitral regurgitation, trace tricuspid regurgitation, and trace pulmonic insufficiency. The aortic root is normal in size. 3. Normal left ventricular chamber size with borderline concentric left ventricular hypertrophy is demonstrated. The estimated left ventricular ejection fraction appears to be at least 60%. No regional wall motion abnormality can be appreciated. Left atrium, right atrium, and right ventricle are normal size with normal right ventricular systolic function. 4. No pericardial effusion. 5. Inferior vena cava not well demonstrated. cc: MD Randal Faulkner MD
[2019-05-21] MEDS: TYLENOL PO PRN (23:49)
[2019-05-22] MEDS: HUMULIN R SUBQ SCH ×4 (06:44→22:25)
[2019-05-22] MEDS ORDERED: ORAJEL MAXIMUM ST 20% GEL TOP PRN (06:56)
[2019-05-22 07:07] LABS: BASO# 0.02 X1000 (0.0-0.2); BASO% 0.3 % (0.0-0.8); EOS# 0.21 X1000 (0.0-0.7); EOS% 2.7 % (0.0-10.0); HEMOGLOBIN 11.3 g/dL (12.0-16.0); LYMPH# 1.19 X1000 (1.2-3.4); LYMPH% 15.3 % (20.5-51.1); MCH 28.1 PG (27-31); MCHC 30.5 g/dL (33-37); MONO# 0.78 X1000 (0.11-0.59); MPV 9.5 FL (7.4-10.4); NEUT% 71.7 % (42.2-75.2); PLT 285 X1000 (130-400); RBC 4.02 XMIL (4.2-5.4); RDW 14.2 % (11.5-14.5)
[2019-05-22 07:31] LABS: ALB/GLOB RATIO 0.7; ALBUMIN 2.6 g/dL (3.5-5.0); CALCIUM 8.8 mg/dL (8.8-10.2); POTASSIUM 3.8 mmol/L (3.5-5.1); TOTAL BILIRUBIN 0.21 mg/dL (0.20-1.00); TOTAL PROTEIN 6.5 g/dL (6.3-8.3)
--- NOTE | 2019-05-22 07:31 | PROGRESS NOTE ---
DATE: 05/22/2019 SUBJECTIVE: No acute events overnight. The patient states she feels like she is doing well. She is tolerating p.o. intake. Denies any nausea or vomiting. The patient has a T- max of 101.6 degrees last night with a heart rate of 100 at that time. It improved this morning. OBJECTIVE: Vital signs: Temperature 97.9 degrees, heart rate 85, blood pressure 133/84, oxygenation 93% on room air. General: No acute distress, lying comfortably in bed, alert and oriented x3. Respiratory: Good respiratory effort without audible wheezing or rales. Abdomen: Soft, nontender, nondistended. Genitourinary: No palpable suprapubic tenderness or CVA tenderness. LABORATORY DATA: Morning labs have not returned yet. MICROBIOLOGY: Her urine culture is growing E coli that is pansensitive, The patient's blood cultures are gram-negative rods. ASSESSMENT AND PLAN: Mrs Rodrgiuez is a 54-year-old who is postoperative day 3 from cystoscopy, right ureteroscopy, stone basket extraction. The patient had undergone a right extracorporeal shock lithotripsy last week and passed stones leading to obstruction and led to a urinary tract infection. The patient's blood and urine cultures are growing E coli that seemingly is pansensitive. The patient has multiple antibiotic allergies and is allergic to Levaquin. Likely will have to be transitioned to a PICC line and have IV infusion of antibiotics. We will follow up her urine culture and blood cultures. Blood cultures currently have not finalized but likely are E coli due to urine culture growing pansensitive E coli. Would continue on culture-specific antibiotics. Likely will need PICC line placed after negative blood cultures. We will follow up for a.m. labs. We will continue to monitor from a urologic standpoint. Please call with questions or concerns. cc: Tommie Palencia MD [facility]
[2019-05-22] MEDS: REQUIP PO SCH (08:09)
[2019-05-22] MEDS: LOPRESSOR PO SCH ×5 (08:10→21:23)
[2019-05-22] MEDS: DITROPAN PO SCH ×2 (08:11→20:03)
[2019-05-22] MEDS: AZACTAM 1 GM in NS 50 ML IV SCH ×2 (08:11→17:00)
[2019-05-22] MEDS: ZOFRAN IV PRN (09:54)
[2019-05-22] MEDS: TYLENOL PO PRN (17:47)
--- NOTE | 2019-05-22 19:11 | PROGRESS NOTE ---
DATE: 05/22/2019 SUBJECTIVE: The patient has no complaints. OBJECTIVE: She seems to be doing okay. Blood pressure 154/91, heart rate 86, respiratory rate 18, temperature 98.3 degrees. Cardiovascular: Regular rate and rhythm. Pulmonary: Bilateral breath sounds clear to auscultation. GI: Was soft, nontender, nondistended. Bowel sounds are positive. LABORATORY DATA: I think all her numbers looked pretty good. White count is down to 7. Hemoglobin 7 and hematocrit 37, platelets 285,000 creatinine is down to 1. PROBLEM LIST: 1. Ureteropelvic junction stone with pyelonephritis, sepsis, E. Coli bacteremia she is on Azactam. Repeat blood cultures have been negative thus far. If they are no growth tomorrow, we can put in a PICC line for IV antibiotics. There is not really any oral. I do not think Macrobid would probably be sufficient to treat a complicated UTI with bacteremia. 2. Escherichia coli bacteremia, also pansensitive. We will wait on final negative blood cultures to set that up. We have done a social work consult for that which we have done and pending that. DISPOSITION: Hopefully discharge in the next day or so. cc: Randal Kinney MD
[2019-05-22] MEDS ORDERED: LASIX IV ONE (20:00)
[2019-05-22] MEDS: DETROL PO SCH (20:01)
[2019-05-22] MEDS: NORVASC PO SCH (20:02)
[2019-05-22] MEDS: ELAVIL PO SCH (20:03)
[2019-05-22] MEDS: COZAAR PO SCH (20:03)
[2019-05-22] MEDS: NEXIUM PO SCH (20:03)
[2019-05-22] MEDS: LEXAPRO PO SCH (20:03)
[2019-05-22] MEDS: ZIAC 10/6.25 MG PO SCH (20:03)
[2019-05-23] MEDS: AZACTAM 1 GM in NS 50 ML IV SCH ×4 (00:39→23:20)
[2019-05-23] MEDS: TYLENOL PO PRN (01:34)
[2019-05-23] MEDS: LOPRESSOR PO SCH ×4 (01:34→20:15)
[2019-05-23] MEDS: HUMULIN R SUBQ SCH ×4 (06:17→22:36)
[2019-05-23 07:15] LABS: BASO# 0.02 X1000 (0.0-0.2); BASO% 0.3 % (0.0-0.8); EOS# 0.27 X1000 (0.0-0.7); HEMOGLOBIN 11.5 g/dL (12.0-16.0); IMM GRAN# 0.04 X1000 (0.0-0.04); IMM GRAN% 0.6 % (0.0-0.5); LYMPH# 1.09 X1000 (1.2-3.4); LYMPH% 16.2 % (20.5-51.1); MCH 28.5 PG (27-31); MCHC 31.9 g/dL (33-37); MCV 89.1 FL (81-99); MONO# 0.81 X1000 (0.11-0.59); MONO% 12.1 % (1.7-9.3); MPV 9.5 FL (7.4-10.4); NEUT# 4.48 X1000 (1.4-6.5); NEUT% 66.8 % (42.2-75.2); PLT 335 X1000 (130-400); RBC 4.04 XMIL (4.2-5.4); RDW 13.8 % (11.5-14.5); WBC 6.71 X1000 (4.8-10.8)
[2019-05-23 07:48] LABS: ALB/GLOB RATIO 0.9; ALBUMIN 3.2 g/dL (3.5-5.0); CALCIUM 9.7 mg/dL (8.8-10.2); CREATININE 1.1 mg/dL (0.5-0.9); MAGNESIUM 1.5 mg/dL (1.5-2.7); POTASSIUM 3.4 mmol/L (3.5-5.1); TOTAL BILIRUBIN 0.21 mg/dL (0.20-1.00); TOTAL PROTEIN 6.8 g/dL (6.3-8.3)
[2019-05-23] MEDS: DITROPAN PO SCH ×2 (09:31→20:14)
[2019-05-23] MEDS: REQUIP PO SCH (09:31)
[2019-05-23] MEDS ORDERED: BLISTEX MEDICATED BERRY LIP BALM TOP PRN (11:59)
[2019-05-23] MEDS ORDERED: KLOR-CON PO ONE ×2 (12:22→20:04)
[2019-05-23] MEDS: ZIAC 10/6.25 MG PO SCH (20:14)
[2019-05-23] MEDS: NORVASC PO SCH (20:14)
[2019-05-23] MEDS: DETROL PO SCH (20:14)
[2019-05-23] MEDS: LEXAPRO PO SCH (20:15)
[2019-05-23] MEDS: NEXIUM PO SCH (20:15)
[2019-05-23] MEDS: COZAAR PO SCH (20:16)
[2019-05-23] MEDS: ELAVIL PO SCH (20:22)
--- NOTE | 2019-05-23 20:27 | PROGRESS NOTE ---
DATE: 05/23/2019 SUBJECTIVE: Patient has no complaints. OBJECTIVE: Blood pressure is 163/99, heart rate 86, respiratory rate of 18, temperature 97.9 degrees, 97% on room air.Cardiovascular: Regular rate and rhythm. Pulmonary: Bilateral breath sounds. Clear to auscultation. Gastrointestinal: Soft, nontender, nondistended. Bowel sounds are positive. LABORATORY DATA: White count 6, hemoglobin and hematocrit 11 and 36, platelets 335,000. Potassium 3.4, creatinine 1.1. PROBLEM LIST: Escherichia coli bacteremia. Stable. Negative blood cultures. Plan for PICC line tomorrow and then home with IV antibiotics. I do not anticipate there is going to be anything else and will look how things look. DISPOSITION: Pending clinical status, but anticipate discharge tomorrow. cc: Randal Kinney MD
[2019-05-23 20:46] LABS: INR 1.04; PROTIME 13.7 Seconds (11.0-16.0)
[2019-05-24] MEDS: NORCO-5 PO PRN (00:34)
[2019-05-24] MEDS: LOPRESSOR PO SCH ×2 (02:11→07:58)
[2019-05-24] MEDS: HUMULIN R SUBQ SCH ×2 (06:28→14:57)
[2019-05-24 07:58] LABS: BASO# 0.05 X1000 (0.0-0.2); BASO% 0.6 % (0.0-0.8); EOS# 0.32 X1000 (0.0-0.7); HEMATOCRIT 36.6 % (37.0-47.0); HEMOGLOBIN 11.7 g/dL (12.0-16.0); IMM GRAN# 0.14 X1000 (0.0-0.04); IMM GRAN% 1.8 % (0.0-0.5); LYMPH# 1.36 X1000 (1.2-3.4); LYMPH% 17.2 % (20.5-51.1); MCH 28.8 PG (27-31); MCV 90.1 FL (81-99); MONO# 1.08 X1000 (0.11-0.59); MONO% 13.7 % (1.7-9.3); MPV 9.4 FL (7.4-10.4); NEUT# 4.96 X1000 (1.4-6.5); NEUT% 62.7 % (42.2-75.2); PLT 382 X1000 (130-400); RBC 4.06 XMIL (4.2-5.4); RDW 14.3 % (11.5-14.5); WBC 7.91 X1000 (4.8-10.8)
[2019-05-24] MEDS: DITROPAN PO SCH ×2 (07:58→12:18)
[2019-05-24] MEDS: AZACTAM 1 GM in NS 50 ML IV SCH (07:59)
[2019-05-24] MEDS: REQUIP PO SCH (07:59)
[2019-05-24 08:17] LABS: ALB/GLOB RATIO 0.8; CALCIUM 9.4 mg/dL (8.8-10.2); CREATININE 1.1 mg/dL (0.5-0.9); MAGNESIUM 1.7 mg/dL (1.5-2.7); POTASSIUM 4.1 mmol/L (3.5-5.1); TOTAL BILIRUBIN 0.17 mg/dL (0.20-1.00); TOTAL PROTEIN 6.8 g/dL (6.3-8.3)
[2019-05-24] MEDS ORDERED: NS 0 ML ONE (11:14)
[2019-05-24 11:26] VITALS: BP 143/94
--- NOTE | 2019-05-24 21:04 | DISCHARGE SUMMARY ---
ADMISSION DATE: 05/19/2019 DISCHARGE DATE: 05/24/2019 DISCHARGE DIAGNOSES: 1. Nephrolithiasis. 2. Ureterolithiasis 3. Escherichia coli bacteremia. 4. Septic shock Escherichia coli cystitis. PROCEDURES: She had a cystoscopy and right ureteral stent and right ureteroscopy with stone basket extraction per Dr. Palencia. This was on the . CONSULTATIONS: Dr. Palencia. SUMMARY: Briefly this is a 54-year-old female history of sarcoid, diabetes, who came in for evaluation. She had an outpatient lithotripsy and then she developed a fever of 102. Her CT scan showed a 7 mm stone in the distal right ureter at the UPJ junction with mild nephrosis and perinephric inflammation consistent with pyelonephritis. She was febrile and tachycardic. She received volume status resuscitation. Her antibiotic allergy list is extensive; cephalexin, doxycycline, levofloxacin, penicillin, and reportedly anaphylaxis to these. We settled on Azactam and Bactrim too based on the sensitivities. She grew out E. Coli, but it was pansensitive. She also had blood cultures on the that grew out E. Coli which was also pansensitive. She underwent treatment on the with a stent in ureters copy and stone extraction per Dr. Palencia. She tolerated that without difficulty. Postop she did fine. However, because her blood cultures were positive, we had to monitor her for a bit longer because she was bacteremic. She had no hardware or anything that would potentially get contaminated, but because of her allergies there were really no oral options. So, we pursued a midline PICC placement. She will be going home on IV Azactam. Day one will be the 2nd; blood cultures are thus far negative. So she will need 2 weeks total, so another 11 days of Azactam 1 g q.8 hours. DISCHARGE CONDITION: Stable DISCHARGE MEDICATIONS: Amitriptyline 150 at bedtime, Cozaar 100 at bedtime, Detrol 1 daily, Glucophage 2 g at bedtime, Lexapro 10 at bedtime, Nexium 40 at bedtime, Norvasc 10 at bedtime, Requip 2 daily, bisoprolol/hydrochlorothiazide which is 10/6.25 at bedtime, Oxy IR 5 q.6 p.r.n., and then the Azactam 1 g IV q.8 hours for another 11 days to complete her 14 day course. cc: Randal Kinney MD
--- NOTE | 2019-05-25 18:34 | Extremity Venous Study ---
PROCEDURE NAME: Venous U/S Right Leg - 05/21/2019 [employer]OR [employer]: Suzanna. REQUESTING PHYSICIAN: YONAS Linares. INDICATION: Edema, rule out DVT. FINDINGS: The deep and superficial veins of right lower extremity were visualized along their course. The vessels were compressible with forward flow. No evidence of intraluminal thrombus. SUMMARY: No deep or superficial venous thrombosis in the right lower extremity. cc: MD Yina Garland CRNP
== END 2019-05-24 14:56 | disposition home health service (06) | DRG 854 ==
LOC: ED 09:23 → 4N 15:12 → ICU 17:40 → 4N 05-20 16:46
PROVIDERS: ATTEND Internal Medicine